=== PATIENT | female | born 1930 | race Caucasian/White ===

== ENCOUNTER 2016-05-20 20:52 | Emergency (ER) | payer MEDICARE, OTHER ==
[~2016-05-20] VITALS: Ht 165.1 cm; Wt 81.6 kg
[~2016-05-20 20:52] MED LIST: AMIO200T33 PO; APIX2.5T OR; ATOR10TA PO; DIGO0.1262 PO; FURO20TA PO; LEV50T PO; LORA-352 PO; METF-489 PO; PANTPAK PO; POT8T PO; RAMI1.2516 PO
[2016-05-20] MEDS ORDERED: MORPHINE SULF INJ 2 MG/ML SYRINGE 1ML IV ONE (22:15)
[2016-05-20] MEDS ORDERED: ONDANSETRON HCL 4 MG/2 ML VIAL IV ONE (22:15)
[2016-05-21] MEDS ORDERED: HYDROcodone-ACET 10/325MG TAB PO ONE (01:30)
[2016-05-21 01:55] VITALS: BP 122/76
== END 2016-05-21 01:07 | disposition home or self-care (01) ==
LOC: ER 20:58
DX: S33.5XXA Sprain of ligaments of lumbar spine, initial encounter (principal); M54.16 Radiculopathy, lumbar region; I48.91 Unspecified atrial fibrillation; M19.90 Unspecified osteoarthritis, unspecified site; I25.10 Atherosclerotic heart disease of native coronary artery without angina pectoris; I11.0 Hypertensive heart disease with heart failure; I50.9 Heart failure, unspecified; E11.9 Type 2 diabetes mellitus without complications; I25.2 Old myocardial infarction; X58.XXXA Exposure to other specified factors, initial encounter; Y93.89 Activity, other specified; Y99.8 Other external cause status; Y92.89 Other specified places as the place of occurrence of the external cause; Z96.89 Presence of other specified functional implants; Z79.899 Other long term (current) drug therapy
CPT/HCPCS: 72131; 82962; 96374; 96375; 99284; J2270; J2405